=== PATIENT | female | born 1975 | race Caucasian/White ===

== ENCOUNTER 2019-08-30 08:36 | Day surgery (SDC) | payer BC ==
[2019-08-30] VITALS (12 sets, daily range): BP systolic 136–1338; BP diastolic 76–87; PULSE 51–83; TEMP 97
[~2019-08-30] VITALS: Ht 167.6 cm; Wt 91.2 kg
[2019-08-30] MEDS ORDERED: AMBIEN 5MG TABLE5 MG PO (09:30)
[2019-08-30] MEDS ORDERED: ASPIRIN 81M81 MG/TA2 PO (09:30)
[2019-08-30] MEDS ORDERED: ESTRACE 1MG1 MG/TAB PO (09:31)
[2019-08-30] MEDS ORDERED: TRICOR 48MG48 MG PO (09:32)
[2019-08-30] MEDS ORDERED: TOPROL XL 25MG25 MG PO (09:33)
[2019-08-30] MEDS ORDERED: IMDUR 30MG30 MG/TAB PO (09:33)
[2019-08-30] MEDS ORDERED: ZOCOR5 MG PO (09:33)
[2019-08-30 09:42] LABS: HEMATOCRIT 40.4 % (37.0-47.0); HEMOGLOBIN 13.4 g/dl (12.5-16.0); MEAN CELL VOLUME 89 fl (80.0-100.0); MEAN CORPUSCULAR HEMOGLOBIN 29 pg (27.0-31.0); MEAN CORPUSCULAR HGB CONC 33 g/dl (33.0-37.0); PLATELET COUNT 267 K/mm3 (130-400); RED BLOOD COUNT 4.56 M/mm3 (4.10-5.30); REDCELL DISTRIBUTION WIDTH-CV 12.4 % (11.5-14.5)
[2019-08-30 09:43] LABS: CALCIUM 9.1 mg/dL (8.4-10.2); CREATININE, serum 0.57 (0.52-1.25)
[2019-08-30 09:47] LABS: INR 1.1 (0.8-3.0); PROTHROMBIN TIME 12.7 SECONDS (9.7-12.8)
[2019-08-30 09:49] LABS: PARTIAL THROMBOPLASTIN TIME 36.1 SECONDS (26.0-37.0)
--- NOTE | 2019-08-30 10:30 | NUR ---
SEE MERGE FOR MEDICATION ADMINISTRATION TIMES AND INTRA AND POST SEDATION ASSESSMENTS.
[2019-08-30] MEDS ORDERED: TOPROL XL 50MG50 MG PO (13:37)
--- NOTE | 2019-08-30 17:12 | NUR ---
Pt has done well in recovery. Site looks good, bandaid applied. DC/RX instructions were reviewed with pt. band was deflated in the following fashion: 2 cc at 1320, 2cc at 1333, 3cc at 1350 which had to be reinstilled due to bleeding. 2 cc at 1445, 2 cc at 1505 and the remaining 5 cc at 1520. IV dc'd with cath intact, dressing applied.
== END 2019-08-30 17:19 | disposition home or self-care (01) ==
LOC: COL.CAR 08:36
PROVIDERS: Internal Medicine Cardiovascular Disease
DX: I25.110 Atherosclerotic heart disease of native coronary artery with unstable angina pectoris (principal); I10 Essential (primary) hypertension; Z82.49 Family history of ischemic heart disease and other diseases of the circulatory system; Z87.891 Personal history of nicotine dependence; Z79.899 Other long term (current) drug therapy; Z88.1 Allergy status to other antibiotic agents; Z79.82 Long term (current) use of aspirin; E78.5 Hyperlipidemia, unspecified
CPT/HCPCS: J1644; J2250; J3010; Q9967